=== PATIENT | female | born 1935 | race Caucasian/White ===

== ENCOUNTER 2020-06-01 16:40 | Observation (INO) | payer MEDICARE, BC ==
[2020-06-01] MEDS ORDERED: Sodium Chloride 0.9% 10 ML Syringe FLUSH PRN (16:58)
--- NOTE | 2020-06-01 17:20 | EDM.PDOC ---
ED HPI GENERAL MEDICAL PROBLEM - General Chief Complaint: Chest Pain Stated Complaint: PALPITATIONS Time Seen by Provider: 06/01/20 16:45 Source of Information: Reports: Patient History Limitations: Reports: No Limitations - History of Present Illness INITIAL COMMENTS - FREE TEXT/NARRATIVE: 85 YO WF PRESENTS TO ER WITH COMPLAINTS OF PALPITATIONS, CHEST PRESSURE AND NAUSEA. PT REPORTS SHE WASN'T FEELING WELL TODAY, AND FELT GENERALLY WEAK. PT TOOK SOME MOTRIN AND LAID DOWN AND WHEN SHE WOKE UP SHE WAS EXPERIENCING THIS PALPITATIONS. PT CAME TO ER AND WAS PLACED ON MONITOR AND WAS FOUND TO BE IN ATRIAL FIBRILLATION WITH RVR. PRIOR TO INITIAL 12 LEAD EKG PATIENT CONVERTED TO NSR. PT IS CURRENTLY ASYMPTOMATIC-NO CHEST PAIN OR PALPITATIONS. CURRENT HR-95; BP-127/89. PT REPORTS SHE DRINKS A LOT OF COFFEE- 2 POTS PER DAY/MULTIPLE CUPS BUT STATES SHE DIDN'T DRINK MUCH TODAY SINCE SHE WASN'T FEELING WELL. Onset: Today Duration: Minutes: Location: Reports: Chest Quality: Reports: Ache Severity: Moderate Improves with: Reports: Rest Worsens with: Reports: Movement Associated Symptoms: Reports: Chest Pain, Nausea/Vomiting - Related Data Allergies Allergy/AdvReac Type Severity Reaction Status Date / Time Penicillins Allergy Hives Verified 06/01/20 17:06 Home Meds: Home Meds Cholecalciferol (Vitamin D3) [Vitamin D3] 400 unit PO DAILY@1200 06/01/20 [History] Clopidogrel Bisulfate [Plavix] 75 mg PO BEDTIME 06/01/20 [History] Cyanocobalamin/Folic AC/Vit B6 [Folbee] 1 tab PO BEDTIME 06/01/20 [History] Insulin Glarg,Human.Rec.Analog [Lantus] 13 units SQ BEDTIME 06/01/20 [History] Losartan [Cozaar] 100 mg PO BEDTIME 06/01/20 [History] Lutein/Minerals/Vit A,C & E [Ocuvite] 1 tab PO BEDTIME 06/01/20 [History] Metoprolol Succinate [Toprol XL 100mg] 100 mg PO BEDTIME 06/01/20 [History] Pantoprazole Sodium [Protonix] 20 mg PO BEDTIME 06/01/20 [History] Sertraline [Zoloft] 100 mg PO BEDTIME 06/01/20 [History] amLODIPine Besylate [Amlodipine Besylate] 10 mg PO BEDTIME 06/01/20 [History] atorvaSTATin [Lipitor] 40 mg PO BEDTIME 06/01/20 [History] hydroCHLOROthiazide [Hydrochlorothiazide] 12.5 mg PO BEDTIME 06/01/20 [History] metFORMIN HCl [Glucophage] 1,000 mg PO DAILY 06/01/20 [History] ED ROS GENERAL - Review of Systems Review Of Systems: See Below Constitutional: Reports: No Symptoms HEENT: Reports: No Symptoms Respiratory: Reports: No Symptoms Cardiovascular: Reports: Chest Pain, Lightheadedness, Palpitations Endocrine: Reports: No Symptoms GI/Abdominal: Reports: Nausea : Reports: No Symptoms Musculoskeletal: Reports: No Symptoms Skin: Reports: No Symptoms Neurological: Reports: No Symptoms Psychiatric: Reports: No Symptoms Hematologic/Lymphatic: Reports: No Symptoms Immunologic: Reports: No Symptoms ED EXAM, GENERAL - Physical Exam Exam: See Below Exam Limited By: No Limitations General Appearance: Alert, WD/WN, No Apparent Distress Eye Exam: Bilateral Eye: PERRL Head: Atraumatic, Normocephalic Neck: Normal Inspection, Supple, Non-Tender, Full Range of Motion Respiratory/Chest: No Respiratory Distress, Lungs Clear, Normal Breath Sounds, No Accessory Muscle Use, Chest Non-Tender Cardiovascular: Normal Peripheral Pulses, Regular Rate, Rhythm, No Edema, No Gallop, No JVD, No Murmur, No Rub GI/Abdominal: Normal Bowel Sounds, Soft, Non-Tender, No Organomegaly, No Distention, No Abnormal Bruit, No Mass Back Exam: Normal Inspection, Full Range of Motion, NT Extremities: Normal Inspection, Normal Range of Motion, Non-Tender, Normal Capillary Refill, No Pedal Edema Neurological: Alert, Oriented, CN II-XII Intact, Normal Cognition, Normal Gait, Normal Reflexes, No Motor/Sensory Deficits Psychiatric: Normal Affect, Normal Mood Skin Exam: Warm, Dry, Intact, Normal Color, No Rash Lymphatic: No Adenopathy Course - Vital Signs Last Recorded V/S: Last Vital Signs Temp 97.8 F 06/01/20 16:49 Pulse 178 H 06/01/20 16:49 Resp 18 06/01/20 16:49 BP 121/73 06/01/20 16:49 Pulse Ox 95 06/01/20 16:49 - Orders/Labs/Meds Orders: Active Orders 24 hr Category Date Time Status EKG Documentation Completion [RC] ASDIRECTED Care 06/01/20 16:57 Ordered Peripheral IV Care [RC] . DIRECTED Care 06/01/20 16:58 Ordered Sodium Chloride 0.9% [Saline Flush] Med 06/01/20 16:58 Ordered 10 ml FLUSH Q8HR PRN Peripheral IV Insertion Adult [OM.PC] Routine Oth 06/01/20 16:58 Ordered EKG 12 Lead [EK] Stat Ther 06/01/20 16:55 Ordered Medication Orders Sodium Chloride (Sodium Chloride 0.9% 10 Ml Syringe) 10 ml FLUSH Q8HR PRN PRN Reason: keep vein open Labs: Laboratory Tests 06/01/20 06/01/20 Range/Units 17:52 17:52 WBC 7.30 (5.00-10.00) 10^3/uL RBC 4.46 (3.80-5.50) 10^6/uL Hgb 13.6 (12.0-16.0) g/dL Hct 38.5 (37.0-47.0) % MCV 86.3 (82.0-92.0) fL MCH 30.5 (27.0-31.0) pg MCHC 35.3 (32.0-36.0) g/dL RDW 13.1 (11.5-14.5) % Plt Count 164 (150-400) 10^3/uL MPV 10.5 H (7.4-10.4) fL Immature Gran % (Auto) 0.1 (0.0-5.0) % Neut % (Auto) 61.3 (50.0-70.0) % Lymph % (Auto) 23.7 (20.0-40.0) % [place] % (Auto) 13.3 H (2.0-8.0) % Eos % (Auto) 1.2 (1.0-3.0) % Baso % (Auto) 0.4 (0.0-1.0) % Neut # (Auto) 4.47 (2.50-7.00) 10^3/uL Lymph # (Auto) 1.73 (1.00-4.00) 10^3/uL [place] # (Auto) 0.97 H (0.10-0.80) 10^3/uL Eos # (Auto) 0.09 L (0.10-0.30) 10^3/uL Baso # (Auto) 0.03 (0.00-0.10) 10^3/uL Immature Gran # (Auto) 0.01 (0.00-0.50) 10^3/uL Sodium 141 (136-145) mmol/L Potassium 3.6 (3.5-5.1) mmol/L Chloride 103 (98-107) mmol/L Carbon Dioxide 23.5 (21.0-32.0) mmol/L Anion Gap 18.1 H (5-15) mmol/L BUN 14 (7-18) mg/dL Creatinine 0.95 (0.51-1.17) mg/dL Est Cr Clr Drug Dosing 38.07 mL/min Estimated GFR (MDRD) 56 mL/min Glucose 182 H (70-140) mg/dL Calcium 9.3 (8.7-10.3) mg/dL Total Bilirubin 0.5 (0.2-1.0) mg/dL AST 19 (15-37) U/L ALT 25 (14-63) U/L Alkaline Phosphatase 56 (46-116) U/L Creatine Kinase 60 (26-276) U/L CK-MB (CK-2) 0.73 (0.00-3.60) ng/mL Troponin I < 0.017 (0.000-0.056) ng/mL B-Natriuretic Peptide 153 H (0-100) pg/mL Total Protein 7.0 (6.4-8.2) g/dL Albumin 3.84 (3.40-5.00) g/dL Meds: Medications Generic Name Dose Route Start Last Admin Trade Name Freq PRN Reason Stop Dose Admin Sodium Chloride 10 ml 06/01/20 16:58 Sodium Chloride 0.9% 10 Ml Syringe FLUSH Q8HR PRN keep vein open Departure - Departure Time of Disposition: 17:51 Disposition: Refer to Observation Condition: Good Clinical Impression: Chest pain Qualifiers: Chest pain type: unspecified Qualified Code(s): R07.9 - Chest pain, unspecified Atrial fibrillation Qualifiers: Atrial fibrillation type: paroxysmal Qualified Code(s): I48.0 - Paroxysmal atrial fibrillation Forms: ED Department Discharge Sepsis Event Note (ED) - Evaluation Sepsis Screening Result: No Definite Risk - Focused Exam Vital Signs: Vital Signs Temp Pulse Resp BP Pulse Ox 06/01/20 16:49 97.8 F 178 H 18 121/73 95 - My Orders Last 24 Hours: My Active Orders 06/01/20 16:55 EKG 12 Lead [EK] Stat 06/01/20 16:57 EKG Documentation Completion [RC] ASDIRECTED 06/01/20 16:58 Peripheral IV Care [RC] . DIRECTED Sodium Chloride 0.9% [Saline Flush] 10 ml FLUSH Q8HR PRN Peripheral IV Insertion Adult [OM.PC] Routine - Assessment/Plan Last 24 Hours: My Active Orders 06/01/20 16:55 EKG 12 Lead [EK] Stat 06/01/20 16:57 EKG Documentation Completion [RC] ASDIRECTED 06/01/20 16:58 Peripheral IV Care [RC] . DIRECTED Sodium Chloride 0.9% [Saline Flush] 10 ml FLUSH Q8HR PRN Peripheral IV Insertion Adult [OM.PC] Routine Assessment:: 1. CHEST PAIN 2. NEW ONSET PAROXYSMAL ATRIAL FIBRILLATION- CONVERTED BACK TO NSR IN ER Plan: 1. ADMIT TO MEDICINE- OBSERVATION- DR JIM FELIX 2. TROP I Q6 3. SUPPORTIVE CARE 4. CARDIAC MONITORING
--- NOTE | 2020-06-01 17:28 | CR ---
[id number] RAD/RAD Chest PA or AP 1V EXAM: RAD Chest PA or AP 1V INDICATION: PAIN. COMPARISON: None. DISCUSSION: Cardiomediastinal silhouette is normal in size and contour. Lungs are clear. No pleural effusion or pneumothorax. IMPRESSION: Negative examination of the chest. Sam Wood MD 06/01/20 [id number] Thank you for allowing us to participate in the care of your patient.
[2020-06-01 17:31] LABS: ANION GAP 18.1 mmol/L (5-15); CHLORIDE,CL 103 mmol/L (98-107); SODIUM,NA 141 mmol/L (136-145)
[2020-06-01] MEDS ORDERED: 50% Dextrose in Water 50 ML Syringe IV PRN (19:39)
[2020-06-01] MEDS ORDERED: Glucagon,Human Recombinant 1 MG Vial IM PRN (19:39)
[2020-06-01] MEDS: Non-Formulary Medication 1 Each (Amlodipine Besylate [Amlodipine Besylate] 10 MG Tablet) PO SCH (20:56)
[2020-06-01] MEDS: Non-Formulary Medication 1 Each (Sertraline [Zoloft] 100 MG Tablet) PO SCH (20:57)
[2020-06-01] MEDS: Clopidogrel 75 MG Tab PO SCH (20:58)
[2020-06-01] MEDS: Hydrochlorothiazide 12.5 MG Cap PO SCH (20:58)
[2020-06-01] MEDS ORDERED: Metoprolol Succinate 50 MG Tab.ER PO SCH (21:00)
[2020-06-01] MEDS ORDERED: Pantoprazole 40 MG Tab.CR PO SCH (21:00)
[2020-06-01] MEDS ORDERED: Losartan 50 MG Tab PO SCH (21:00)
[2020-06-01] MEDS ORDERED: atorvaSTATin 40 MG Tab PO SCH (21:00)
[2020-06-01] MEDS: INSULIN GLARG HUMAN REC ANALOG 100 UNIT/ML SQ SCH (21:05)
[2020-06-01] MEDS: [UNRECOGNIZED DRUG - OTHER] SQ SCH (21:05)
[2020-06-01] MEDS: Insulin Aspart 100 Units/ML 3 ML Pen SUBCUT SCH (21:06)
[2020-06-01] MEDS: Enoxaparin 40 MG/0.4 ML Syringe SUBCUT SCH (21:07)
[2020-06-02] MEDS: Insulin Aspart 100 Units/ML 3 ML Pen SUBCUT SCH ×4 (07:39→21:30)
[2020-06-02] MEDS ORDERED: Atropine 0.1 MG/ML 10 ML Syringe IVPUSH PRN (16:14)
[2020-06-02] MEDS ORDERED: EPINEPHrine 1:10,000 1 MG/10 ML Syringe IVPUSH PRN (16:14)
[2020-06-02] MEDS ORDERED: Nitroglycerin 0.4 MG Tab.SL SL PRN (16:14)
[2020-06-02] MEDS ORDERED: Lidocaine 2% 100 MG/5 ML Syringe IVPUSH PRN (16:14)
--- NOTE | 2020-06-02 16:55 | PCM.HP.2 ---
H&P History of Present Illness - General Date of Service: 06/02/20 Admit Problem/Dx: Admission Diagnosis/Problem Admission Diagnosis/Problem Chest pain Source of Information: Patient, Old Records, Provider History Limitations: Reports: No Limitations - Related Data Allergies/Adverse Reactions: Allergies Allergy/AdvReac Type Severity Reaction Status Date / Time Penicillins Allergy Hives Verified 06/01/20 17:06 Home Medications: Home Meds Cholecalciferol (Vitamin D3) [Vitamin D3] 400 unit PO DAILY@1200 06/01/20 [History] Clopidogrel Bisulfate [Plavix] 75 mg PO BEDTIME 06/01/20 [History] Cyanocobalamin/Folic AC/Vit B6 [Folbee] 1 tab PO BEDTIME 06/01/20 [History] Insulin Glarg,Human.Rec.Analog [Lantus] 13 units SQ BEDTIME 06/01/20 [History] Losartan [Cozaar] 100 mg PO BEDTIME 06/01/20 [History] Lutein/Minerals/Vit A,C & E [Ocuvite] 1 tab PO BEDTIME 06/01/20 [History] Pantoprazole Sodium [Protonix] 20 mg PO BEDTIME 06/01/20 [History] Sertraline [Zoloft] 100 mg PO BEDTIME 06/01/20 [History] amLODIPine Besylate [Amlodipine Besylate] 10 mg PO BEDTIME 06/01/20 [History] atorvaSTATin [Lipitor] 40 mg PO BEDTIME 06/01/20 [History] hydroCHLOROthiazide [Hydrochlorothiazide] 12.5 mg PO BEDTIME 06/01/20 [History] metFORMIN HCl [Glucophage] 1,000 mg PO DAILY 06/01/20 [History] Metoprolol Succinate [Toprol XL 100mg] 50 mg PO BEDTIME #30 06/03/20 [Rx] Past Medical History HEENT History: Reports: Cataract, Other (See Below) Other HEENT History: denture sore mouth Cardiovascular History: Reports: High Cholesterol, Hypertension, Other (See [place]) Other Cardiovascular History: hypokalemia,carotid artery stenosis Gastrointestinal History: Reports: GERD Genitourinary History: Reports: UTI, Recurrent [employer] History: Reports: Musculoskeletal History: Reports: Back Pain, Chronic, Other (See Below) Other Musculoskeletal History: numbness/tingling to right hand, back pain radiating down left leg Neurological History: Reports: CVA, Other (See Below) Other Neuro History: thalmic infarct Endocrine/Metabolic History: Reports: Diabetes, Type II, Osteoporosis Hematologic History: Reports: None Immunologic History: Reports: None Oncologic (Cancer) History: Reports: None Dermatologic History: Reports: Other (See Below) Other Dermatologic History: rash or other nonspecific skin eruption - Infectious Disease History Infectious Disease History: Reports: Chicken Pox, Measles, Mumps - Past Surgical History Head Surgeries/Procedures: Reports: None HEENT Surgical History: Reports: Cataract Surgery Cardiovascular Surgical History: Reports: Carotid Endarterectomy GI Surgical History: Reports: Colonoscopy Female Surgical History: Reports: Hysterectomy Neurological Surgical History: Reports: None Musculoskeletal Surgical History: Reports: Other (See Below) Other Musculoskeletal Surgeries/Procedures:: Hammertoe repair Social & Family History - Family History Family Medical History: No Pertinent Family History - Tobacco Use Tobacco Use Status *Q: Never Tobacco User - Caffeine Use Caffeine Use: Reports: Coffee Other Caffeine Use: 2 pots per day of coffee - Recreational Drug Use Recreational Drug Use: No H&P Review of Systems - Review of Systems: Review Of Systems: See Below General: Reports: Weakness (Chronic weakness left lower extremity) HEENT: Reports: No Symptoms Pulmonary: Reports: No Symptoms Cardiovascular: Reports: Syncope (Patient states she has chronic passing out when she bends over or leans forward). Denies: Orthopnea, PND, Blood Pressure Problem Gastrointestinal: Reports: No Symptoms Genitourinary: Reports: No Symptoms Musculoskeletal: Reports: No Symptoms Skin: Reports: No Symptoms Psychiatric: Reports: No Symptoms Neurological: Reports: Pre-Existing Deficit (Left lower extremity deficit history of CVA no drop foot,) Exam - Exam Exam: See Below - Vital Signs Vital Signs: Last Vital Signs Temp 96.6 F L 06/02/20 15:00 Pulse 56 L 06/02/20 15:00 Resp 16 06/02/20 15:00 BP 132/55 L 06/02/20 15:00 Pulse Ox 93 L 06/02/20 15:00 Weight: 155 lb - Exam Quality Assessment: No: Supplemental Oxygen General: Alert, Oriented, 4 HEENT: Conjunctiva Clear Neck: Supple Lungs: Clear to Auscultation, Normal Respiratory Effort Cardiovascular: Regular Rate, Regular Rhythm, Normal S1, Normal S2 GI/Abdominal Exam: Normal Bowel Sounds, Soft (Female) Exam: Deferred Rectal (Female) Exam: Deferred Back Exam: No: CVA Tenderness (L), CVA Tenderness (R) Extremities: No Pedal Edema, Normal Capillary Refill Peripheral Pulses: 2+: Radial (L), 3+: Radial (R) Skin: Warm, Dry, Intact Neurological: Normal Speech, Normal Tone, Sensation Intact. No: Focal Deficit, Clonus Neuro Extensive - Mental Status: Alert, Oriented x3 Neuro Extensive - Motor, Sensory, Reflexes: CN II-XII Intact Psychiatric: Alert, Normal Affect, Normal Mood - Patient Data Lab Results Last 24 hrs: Laboratory Results - last 24 hr 06/01/20 06/01/20 06/01/20 Range/Units 17:51 17:52 17:52 WBC 7.30 (5.00-10.00) 10^3/uL RBC 4.46 (3.80-5.50) 10^6/uL Hgb 13.6 (12.0-16.0) g/dL Hct 38.5 (37.0-47.0) % MCV 86.3 (82.0-92.0) fL MCH 30.5 (27.0-31.0) pg MCHC 35.3 (32.0-36.0) g/dL RDW 13.1 (11.5-14.5) % Plt Count 164 (150-400) 10^3/uL MPV 10.5 H (7.4-10.4) fL Immature Gran % (Auto) 0.1 (0.0-5.0) % Neut % (Auto) 61.3 (50.0-70.0) % Lymph % (Auto) 23.7 (20.0-40.0) % Price % (Auto) 13.3 H (2.0-8.0) % Eos % (Auto) 1.2 (1.0-3.0) % Baso % (Auto) 0.4 (0.0-1.0) % Neut # (Auto) 4.47 (2.50-7.00) 10^3/uL Lymph # (Auto) 1.73 (1.00-4.00) 10^3/uL Price # (Auto) 0.97 H (0.10-0.80) 10^3/uL Eos # (Auto) 0.09 L (0.10-0.30) 10^3/uL Baso # (Auto) 0.03 (0.00-0.10) 10^3/uL Immature Gran # (Auto) 0.01 (0.00-0.50) 10^3/uL Sodium 141 (136-145) mmol/L Potassium 3.6 (3.5-5.1) mmol/L Chloride 103 (98-107) mmol/L Carbon Dioxide 23.5 (21.0-32.0) mmol/L Anion Gap 18.1 H (5-15) mmol/L BUN 14 (7-18) mg/dL Creatinine 0.95 (0.51-1.17) mg/dL Est Cr Clr Drug Dosing 38.07 mL/min Estimated GFR (MDRD) 56 mL/min Glucose 182 H (70-140) mg/dL POC Glucose (70-140) mg/dL Calcium 9.3 (8.7-10.3) mg/dL Magnesium (1.8-2.4) mg/dL Total Bilirubin 0.5 (0.2-1.0) mg/dL AST 19 (15-37) U/L ALT 25 (14-63) U/L Alkaline Phosphatase 56 (46-116) U/L Creatine Kinase 60 (26-276) U/L CK-MB (CK-2) 0.73 (0.00-3.60) ng/mL Troponin I < 0.017 (0.000-0.056) ng/mL B-Natriuretic Peptide 153 H (0-100) pg/mL Total Protein 7.0 (6.4-8.2) g/dL Albumin 3.84 (3.40-5.00) g/dL TSH, Ultra Sensitive (0.340-4.820) uIU/mL SARS CoV-2 RNA Rapid MALINI Negative (NEGATIVE) 06/01/20 06/01/20 06/01/20 Range/Units 20:54 23:08 23:08 WBC (5.00-10.00) 10^3/uL RBC (3.80-5.50) 10^6/uL Hgb (12.0-16.0) g/dL Hct (37.0-47.0) % MCV (82.0-92.0) fL MCH (27.0-31.0) pg MCHC (32.0-36.0) g/dL RDW (11.5-14.5) % Plt Count (150-400) 10^3/uL MPV (7.4-10.4) fL Immature Gran % (Auto) (0.0-5.0) % Neut % (Auto) (50.0-70.0) % Lymph % (Auto) (20.0-40.0) % Price % (Auto) (2.0-8.0) % Eos % (Auto) (1.0-3.0) % Baso % (Auto) (0.0-1.0) % Neut # (Auto) (2.50-7.00) 10^3/uL Lymph # (Auto) (1.00-4.00) 10^3/uL Price # (Auto) (0.10-0.80) 10^3/uL Eos # (Auto) (0.10-0.30) 10^3/uL Baso # (Auto) (0.00-0.10) 10^3/uL Immature Gran # (Auto) (0.00-0.50) 10^3/uL Sodium (136-145) mmol/L Potassium (3.5-5.1) mmol/L Chloride (98-107) mmol/L Carbon Dioxide (21.0-32.0) mmol/L Anion Gap (5-15) mmol/L BUN (7-18) mg/dL Creatinine (0.51-1.17) mg/dL Est Cr Clr Drug Dosing mL/min Estimated GFR (MDRD) mL/min Glucose (70-140) mg/dL POC Glucose 152 H (70-140) mg/dL Calcium (8.7-10.3) mg/dL Magnesium 1.8 (1.8-2.4) mg/dL Total Bilirubin (0.2-1.0) mg/dL AST (15-37) U/L ALT (14-63) U/L Alkaline Phosphatase (46-116) U/L Creatine Kinase (26-276) U/L CK-MB (CK-2) (0.00-3.60) ng/mL Troponin I 0.040 (0.000-0.056) ng/mL B-Natriuretic Peptide (0-100) pg/mL Total Protein (6.4-8.2) g/dL Albumin (3.40-5.00) g/dL TSH, Ultra Sensitive 3.297 (0.340-4.820) uIU/mL SARS CoV-2 RNA Rapid MALINI (NEGATIVE) 06/02/20 06/02/20 06/02/20 Range/Units 07:30 07:37 12:10 WBC (5.00-10.00) 10^3/uL RBC (3.80-5.50) 10^6/uL Hgb (12.0-16.0) g/dL Hct (37.0-47.0) % MCV (82.0-92.0) fL MCH (27.0-31.0) pg MCHC (32.0-36.0) g/dL RDW (11.5-14.5) % Plt Count (150-400) 10^3/uL MPV (7.4-10.4) fL Immature Gran % (Auto) (0.0-5.0) % Neut % (Auto) (50.0-70.0) % Lymph % (Auto) (20.0-40.0) % Price % (Auto) (2.0-8.0) % Eos % (Auto) (1.0-3.0) % Baso % (Auto) (0.0-1.0) % Neut # (Auto) (2.50-7.00) 10^3/uL Lymph # (Auto) (1.00-4.00) 10^3/uL Price # (Auto) (0.10-0.80) 10^3/uL Eos # (Auto) (0.10-0.30) 10^3/uL Baso # (Auto) (0.00-0.10) 10^3/uL Immature Gran # (Auto) (0.00-0.50) 10^3/uL Sodium (136-145) mmol/L Potassium (3.5-5.1) mmol/L Chloride (98-107) mmol/L Carbon Dioxide (21.0-32.0) mmol/L Anion Gap (5-15) mmol/L BUN (7-18) mg/dL Creatinine (0.51-1.17) mg/dL Est Cr Clr Drug Dosing mL/min Estimated GFR (MDRD) mL/min Glucose (70-140) mg/dL POC Glucose 136 121 (70-140) mg/dL Calcium (8.7-10.3) mg/dL Magnesium (1.8-2.4) mg/dL Total Bilirubin (0.2-1.0) mg/dL AST (15-37) U/L ALT (14-63) U/L Alkaline Phosphatase (46-116) U/L Creatine Kinase (26-276) U/L CK-MB (CK-2) (0.00-3.60) ng/mL Troponin I 0.030 (0.000-0.056) ng/mL B-Natriuretic Peptide (0-100) pg/mL Total Protein (6.4-8.2) g/dL Albumin (3.40-5.00) g/dL TSH, Ultra Sensitive (0.340-4.820) uIU/mL SARS CoV-2 RNA Rapid MALINI (NEGATIVE) Result Diagrams: 06/01/20 17:52 06/01/20 17:52 Sepsis Event Note - Evaluation Sepsis Screening Result: No Definite Risk - Focused Exam Vital Signs: Vital Signs Temp Pulse Pulse Resp BP BP Pulse Ox 06/02/20 15:00 96.6 F L 56 L 16 132/55 L 93 L 06/02/20 11:00 97.1 F 59 L 18 138/67 96 06/02/20 06:17 98.5 F 62 16 154/62 H 95 Problem List Initiated/Reviewed/Updated: Yes Orders Last 24hrs: Active Orders 24 hr Category Date Time Status Patient Status [ADT] Routine ADT 06/01/20 17:53 Active Blood Glucose Check, Bedside [RC] WITHMEALSANDBED Care 06/01/20 19:34 Active Cardiac Monitoring [RC] 03,07,11,15,19,23 Care 06/01/20 19:35 Active Intake and Output [RC] 0600,1400,2200 Care 06/01/20 19:35 Active Oxygen Therapy [RC] PRN Care 06/01/20 19:35 Active Up With Assistance [RC] ASDIRECTED Care 06/01/20 19:34 Active VTE/DVT Education [RC] PER UNIT ROUTINE Care 06/01/20 17:53 Active Vital Signs [RC] 03,07,11,15,19,23 Care 06/01/20 17:53 Active [place] [employer] Diet [DIET] Diet 06/02/20 Breakfast Active Atropine [Atropine 0.1 MG/ML] Med 06/02/20 16:14 Active See Dose Instructions IVPUSH ASDIRECTED PRN Clopidogrel [Plavix] Med 06/01/20 21:00 Active 75 mg PO BEDTIME Dextrose 50% in Water Med 06/01/20 19:39 Active 50 ml IV ASDIRECTED PRN EPINEPHrine [EPINEPHrine 1:10,000] Med 06/02/20 16:14 Active 1 mg IVPUSH ASDIRECTED PRN Enoxaparin [Lovenox] Med 06/01/20 21:00 Active 40 mg SUBCUT Q24H Glucagon,Human Recombinant [GlucaGen] Med 06/01/20 19:39 Active 1 mg IM ASDIRECTED PRN Insulin Aspart [NovoLOG] Med 06/01/20 22:00 Active See Protocol SUBCUT WITHMEALSANDBED Insulin Glarg,Human.Rec.Analog [Lantus] Med 06/01/20 21:00 Active 13 units SQ BEDTIME Lidocaine 2% [Xylocaine 2%] Med 06/02/20 16:14 Active See Dose Instructions IVPUSH ASDIRECTED PRN Nitroglycerin [Nitrostat] Med 06/02/20 16:14 Active 0.4 mg SL ASDIRECTED PRN Non-Formulary Medication [NF Drug] Med 06/02/20 21:00 Active 1 each PO BEDTIME Non-Formulary Medication [NF Drug] Med 06/02/20 21:00 Active 1 each PO BEDTIME Non-Formulary Medication [NF Drug] Med 06/02/20 21:00 Active 1 each PO BEDTIME Sertraline [Zoloft] Med 06/01/20 21:00 Active 100 mg PO BEDTIME amLODIPine Besylate [Amlodipine Besylate] Med 06/01/20 21:00 Active 10 mg PO BEDTIME atorvaSTATin [Lipitor] Med 06/02/20 21:00 Active 40 mg PO BEDTIME hydroCHLOROthiazide Med 06/01/20 21:00 Active 12.5 mg PO BEDTIME Peripheral IV Insertion Adult [OM.PC] Routine Oth 06/01/20 16:58 Ordered Resuscitation Status Routine Resus Stat 06/01/20 17:53 Ordered EKG 12 Lead [EK] Stat Ther 06/01/20 16:55 Stop Req Medication Orders Atorvastatin Calcium (Atorvastatin 40 Mg Tab - Ptom) 40 mg PO BEDTIME RASHEED Atropine Sulfate (Atropine 0.1 Mg/Ml 10 Ml Syringe) 0 mg IVPUSH ASDIRECTED PRN PRN Reason: Heart. Clopidogrel Bisulfate (Clopidogrel 75 Mg Tab) 75 mg PO BEDTIME [facility] Last Admin: 06/01/20 20:58 Dose: 75 mg Documented by: PETER Dextrose/Water (50% Dextrose In Water 50 Ml Syringe) 50 ml IV ASDIRECTED PRN PRN Reason: Hypoglycemia Enoxaparin Sodium (Enoxaparin 40 Mg/0.4 Ml Syringe) 40 mg SUBCUT Q24H [facility] Last Admin: 06/01/20 21:07 Dose: 40 mg Documented by: PETER Epinephrine HCl (Epinephrine 1:10,000 1 Mg/10 Ml Syringe) 1 mg IVPUSH ASDIRECTED PRN PRN Reason: Heart. Glucagon (Glucagon,Human Recombinant 1 Mg Vial) 1 mg IM ASDIRECTED PRN PRN Reason: Hypoglycemia Hydrochlorothiazide (Hydrochlorothiazide 12.5 Mg Cap) 12.5 mg PO BEDTIME [facility] Last Admin: 06/01/20 20:58 Dose: 12.5 mg Documented by: PETER Insulin Aspart (Insulin Aspart 100 Units/Ml 3 Ml Pen) 0 unit SUBCUT WITHMEALSANDBED [facility]; Protocol Last Admin: 06/02/20 07:39 Dose: Not Given Documented by: Admin: 06/01/20 21:06 Dose: 1 unit Documented by: PETER Lidocaine HCl (Lidocaine 2% 100 Mg/5 Ml Syringe) 0 mg IVPUSH ASDIRECTED PRN PRN Reason: Heart. Nitroglycerin (Nitroglycerin 0.4 Mg Tab.Sl) 0.4 mg SL ASDIRECTED PRN PRN Reason: Heart. Non-Formulary Medication (Amlodipine Besylate [Amlodipine Besylate]) 10 mg PO BEDTIME [facility] Last Admin: 06/01/20 20:56 Dose: 10 mg Documented by: PETER Non-Formulary Medication (Insulin Glarg,Human.Rec.Analog [Lantus]) 13 units SQ BEDTIME [facility] Last Admin: 06/01/20 21:05 Dose: 13 units Documented by: PETER Non-Formulary Medication (Sertraline [Zoloft]) 100 mg PO BEDTIME [facility] Last Admin: 06/01/20 20:57 Dose: 100 mg Documented by: PETER Metoprolol Succinate (Er 100mg - Ptom) 1 each PO BEDTIME [facility] Losartan 100mg (Tablet - Ptom) 1 each PO BEDTIME [facility] Pantoprazole Dr 20mg (Tablet - Ptom) 1 each PO BEDTIME [facility] Assessment/Plan Comment:: History of present illness Sherin is a pleasant 85-year-old female that was admitted yesterday and OBS status due to up possible atrial fibrillation episode. Patient drove herself to the ED complaining of some chest palpitations pressure along with accompanying nausea. Admits to not feeling herself the day of admission with generalized weakness. On arrival to the ED he was noted for her to be in atrial fibrillation with RVR on basic leads however prior to ECG converted to normal sinus rhythm. She had no chest pain or palpitations on arrival to the ED. Admits to heavy coffee drinker lately ED course, EKG; Initial cardio biomarkers normal Vital signs within normal limits No chest pain or shortness of breath Chest x-ray, within normal limits Hospital course 06/02/2020; no overnight calls nor concerns, patient feels good today on rounds. Nurses do not report any signs and symptoms of atrial fibrillations, patient de nies palpitations, PND Primary hospital problems Rule out paroxysmal atrial fibrillation, secured entrance monitor, will hold off on full anticoagulation other than LMWH aggressive ambulation activity 4 times today. Continue with metoprolol Chronic/stable problems Hypertension, HCTZ, 12.5 mg daily, amlodipine 10 mg, losartan 100 mg Hyperlipidemia, statin therapy Type 2 diabetes, insulin Stenosis, carotid arteries, clopidogrel Thalmic infarct history, clopidogrel Osteoporosis Disposition/overall plan --Continue with telemetry at this time, notify on-call provider with any abnormalities --Anticipate discharge in a.m. - Mortality Measure Prognosis:: Good
[2020-06-02] MEDS ORDERED: LOSARTAN 100 MG PO SCH (21:00)
[2020-06-02] MEDS ORDERED: PANTOPRAZOLE 20 MG PO SCH (21:00)
[2020-06-02] MEDS ORDERED: METOPROLOL SUCCINATE 100 MG PO SCH (21:00)
[2020-06-02] MEDS ORDERED: ATORVASTATIN 40 MG PO SCH (21:00)
[2020-06-02] MEDS: Hydrochlorothiazide 12.5 MG Cap PO SCH (21:25)
[2020-06-02] MEDS: Clopidogrel 75 MG Tab PO SCH (21:25)
[2020-06-02] MEDS: Non-Formulary Medication 1 Each (Amlodipine Besylate [Amlodipine Besylate] 10 MG Tablet) PO SCH (21:25)
[2020-06-02] MEDS: Non-Formulary Medication 1 Each (Sertraline [Zoloft] 100 MG Tablet) PO SCH (21:27)
[2020-06-02] MEDS: INSULIN GLARG HUMAN REC ANALOG 100 UNIT/ML SQ SCH (21:29)
[2020-06-02] MEDS: [UNRECOGNIZED DRUG - OTHER] SQ SCH (21:29)
[2020-06-02] MEDS: Enoxaparin 40 MG/0.4 ML Syringe SUBCUT SCH (21:32)
[2020-06-03] MEDS: Insulin Aspart 100 Units/ML 3 ML Pen SUBCUT SCH (07:45)
--- NOTE | 2020-06-03 09:44 | PCM.DCSUM1 ---
Discharge Summary - Hospital Course Diagnosis: Stroke: No - Discharge Data Discharge Date: 06/03/20 Discharge Disposition: Home, W Home Health Agency 06 Condition: Good - Referral to Home Health Date of Face to Face Encounter: 06/03/20 Reason for Homebound Status: This is a order in a [id number] encounter from home health services to include home health nursing to set up an monitor patient's medication regime. Patient's family states they're not so certain that she is been compliant regarding proper medication set up, distribution and administration. She has had recent changes in her medication including a 50% reduction in metoprolol tartrate 50 mg by mouth at bedtime. Please develop an in-home therapy program to address medication compliance and set up an proper monitoring. Patient does have some confusion regarding her medication with possible recent atrial fibrillation with RVR undetected while in the hospital however highly suspect she has paroxysmal atrial fibrillation Primary Care Physician: Tonie De La Cruz PA-C Skilled Need: Home medications set up, and administration, compliance education - Patient Summary/Data Complications: No complications other than a symptom medic sinus bradycardia due to metoprolol - Patient Instructions Diet: Heart Healthy Diet Activity: No Strenuous Activities Driving: Do Not Drive Showering/Bathing: May Shower Other/Special Instructions: Report any chest flutterness, dizziness or chest pains. We decreased your BP meds Metoprolol to 50mg at bedtime. Drink plenty of water. - Discharge Plan *PRESCRIPTION DRUG MONITORING PROGRAM REVIEWED*: Not Applicable *COPY OF PRESCRIPTION DRUG MONITORING REPORT IN PATIENT CELESTE: Not Applicable Home Medications: Home Meds Cholecalciferol (Vitamin D3) [Vitamin D3] 400 unit PO DAILY@1200 06/01/20 [History] Clopidogrel Bisulfate [Plavix] 75 mg PO BEDTIME 06/01/20 [History] Cyanocobalamin/Folic AC/Vit B6 [Folbee] 1 tab PO BEDTIME 06/01/20 [History] Insulin Glarg,Human.Rec.Analog [Lantus] 13 units SQ BEDTIME 06/01/20 [History] Losartan [Cozaar] 100 mg PO BEDTIME 06/01/20 [History] Lutein/Minerals/Vit A,C & E [Ocuvite] 1 tab PO BEDTIME 06/01/20 [History] Pantoprazole Sodium [Protonix] 20 mg PO BEDTIME 06/01/20 [History] Sertraline [Zoloft] 100 mg PO BEDTIME 06/01/20 [History] amLODIPine Besylate [Amlodipine Besylate] 10 mg PO BEDTIME 06/01/20 [History] atorvaSTATin [Lipitor] 40 mg PO BEDTIME 06/01/20 [History] hydroCHLOROthiazide [Hydrochlorothiazide] 12.5 mg PO BEDTIME 06/01/20 [History] metFORMIN HCl [Glucophage] 1,000 mg PO DAILY 06/01/20 [History] Metoprolol Succinate [Toprol XL 100mg] 50 mg PO BEDTIME #30 06/03/20 [Rx] Referrals: Thee Dong, SILVER STEWARD [Nurse Practitioner] - - Discharge Summary/Plan Comment DC Time >30 min.: Yes Discharge Summary/Plan Comment: Final diagnosis Rule out paroxysmal atrial fibrillation, this has not been fully ruled out Chronic/stable problems Hypertension, HCTZ, 12.5 mg daily, amlodipine 10 mg, losartan 100 mg Hyperlipidemia, statin therapy Type 2 diabetes, insulin Stenosis, carotid arteries, clopidogrel Thalmic infarct history, clopidogrel Osteoporosis History summary Sherin is a pleasant 85-year-old female that was admitted yesterday and OBS status due to up possible atrial fibrillation episode. Patient drove herself to the ED complaining of some chest palpitations pressure along with accompanying nausea. Admits to not feeling herself the day of admission with generalized weakness. On arrival to the ED he was noted for her to be in atrial fibrillation with RVR on basic leads however prior to ECG converted to normal sinus rhythm. She had no chest pain or palpitations on arrival to the ED. Admits to heavy coffee drinker lately ED course, EKG; Initial cardio biomarkers normal Vital signs within normal limits No chest pain or shortness of breath Chest x-ray, within normal limits Hospital course 06/02/2020; no overnight calls nor concerns, patient feels good today on rounds. Nurses do not report any signs and symptoms of atrial fibrillations, patient denies palpitations, PND 06/03/2020; no concerns for atrial fibrillation however patient did have sinus bradycardia asymptomatic in the 50s. Metoprolol succinate was decreased by 50% to 50 mg by mouth at bedtime. Patient no chest pains no shortness of breath she tolerated her diet and she had no signs and symptoms of adverse reactions other than slight little bradycardic due to metoprolol succinate. No signs of atrial fibrillation on 48 hour monitoring. Denies any dyspnea, chest pain or chest palpitations and leg on the floor quite aggressively yesterday throughout the day with no telemetry A. fib A flutter concerns. Family denotes patient mixing her medications up and not being compliant and being confused. Home health referral will be placed Disposition/overall plan --Patient was deemed ready for discharge, she'll follow up with myself next week, she desires to pick another PCP due to her PCP skilled nursing --Home health referral for medication compliance set up management administration. Medication changes/adjustments upon discharge --Metoprolol succinate, reduced by 50% to 50 mg by mouth daily at bedtime --continue on all other home medications This is a order in a [id number] encounter from home health services to include home health nursing to set up an monitor patient's medication regime. Patient's family states they're not so certain that she is been compliant regarding proper medication set up, distribution and administration. She has had recent changes in her medication including a 50% reduction in metoprolol tartrate 50 mg by mouth at bedtime. Please develop an in-home therapy program to address medication compliance and set up an proper monitoring. Patient does have some confusion regarding her medication with possible recent atrial fibrillation with RVR undetected while in the hospital however highly suspect she has paroxysmal atrial fibrillation - General Info Functional Status: Reports: Pain Controlled - Review of Systems General: Reports: No Symptoms HEENT: Reports: No Symptoms Pulmonary: Reports: No Symptoms Cardiovascular: Reports: No Symptoms Gastrointestinal: Reports: No Symptoms Genitourinary: Reports: No Symptoms Musculoskeletal: Reports: No Symptoms Skin: Reports: No Symptoms Neurological: Reports: No Symptoms Psychiatric: Reports: No Symptoms - Patient Data Vitals - Most Recent: Last Vital Signs Temp 96.9 F 06/03/20 06:55 Pulse 60 06/03/20 06:55 Resp 16 06/03/20 06:55 BP 137/62 06/03/20 06:55 Pulse Ox 93 L 06/03/20 06:55 Weight - Most Recent: 155 lb I&O - Last 24 hours: Intake & Output 06/02/20 06/03/20 06/03/20 22:59 06:59 14:59 Intake Total 300 100 Output Total 600 200 Balance -300 -100 Lab Results - Last 24 hrs: Laboratory Results - last 24 hr 06/02/20 06/02/20 06/02/20 Range/Units 12:10 17:49 21:06 POC Glucose 121 107 152 H (70-140) mg/dL Med Orders - Current: Current Medications Atorvastatin Calcium (Atorvastatin 40 Mg Tab - Ptom) 40 mg PO BEDTIME [facility] Last Admin: 06/02/20 21:26 Dose: 40 mg Documented by: Atropine Sulfate (Atropine 0.1 Mg/Ml 10 Ml Syringe) 0 mg IVPUSH ASDIRECTED PRN PRN Reason: Heart. Clopidogrel Bisulfate (Clopidogrel 75 Mg Tab) 75 mg PO BEDTIME [facility] Last Admin: 06/02/20 21:25 Dose: 75 mg Documented by: Dextrose/Water (50% Dextrose In Water 50 Ml Syringe) 50 ml IV ASDIRECTED PRN PRN Reason: Hypoglycemia Enoxaparin Sodium (Enoxaparin 40 Mg/0.4 Ml Syringe) 40 mg SUBCUT Q24H [facility] Last Admin: 06/02/20 21:32 Dose: 40 mg Documented by: Epinephrine HCl (Epinephrine 1:10,000 1 Mg/10 Ml Syringe) 1 mg IVPUSH ASDIRECTED PRN PRN Reason: Heart. Glucagon (Glucagon,Human Recombinant 1 Mg Vial) 1 mg IM ASDIRECTED PRN PRN Reason: Hypoglycemia Hydrochlorothiazide (Hydrochlorothiazide 12.5 Mg Cap) 12.5 mg PO BEDTIME [facility] Last Admin: 06/02/20 21:25 Dose: 12.5 mg Documented by: Insulin Aspart (Insulin Aspart 100 Units/Ml 3 Ml Pen) 0 unit SUBCUT WITHMEALSANDBED [facility]; Protocol Last Admin: 06/03/20 07:45 Dose: 1 unit Documented by: Lidocaine HCl (Lidocaine 2% 100 Mg/5 Ml Syringe) 0 mg IVPUSH ASDIRECTED PRN PRN Reason: Heart. Nitroglycerin (Nitroglycerin 0.4 Mg Tab.Sl) 0.4 mg SL ASDIRECTED PRN PRN Reason: Heart. Non-Formulary Medication (Amlodipine Besylate [Amlodipine Besylate]) 10 mg PO BEDTIME [facility] Last Admin: 06/02/20 21:25 Dose: 10 mg Documented by: Non-Formulary Medication (Insulin Glarg,Human.Rec.Analog [Lantus]) 13 units SQ BEDTIME [facility] Last Admin: 06/02/20 21:29 Dose: 13 units Documented by: Non-Formulary Medication (Sertraline [Zoloft]) 100 mg PO BEDTIME [facility] Last Admin: 06/02/20 21:27 Dose: 100 mg Documented by: Metoprolol Succinate (Er 100mg - Ptom) 1 each PO BEDTIME [facility] Last Admin: 06/02/20 21:23 Dose: 0.5 each Documented by: Losartan 100mg (Tablet - Ptom) 1 each PO BEDTIME [facility] Last Admin: 06/02/20 21:26 Dose: 1 each Documented by: Pantoprazole Dr 20mg (Tablet - Ptom) 1 each PO BEDTIME [facility] Last Admin: 06/02/20 21:27 Dose: 1 each Documented by: Discontinued Medications Atorvastatin Calcium (Atorvastatin 40 Mg Tab) 40 mg PO BEDTIME [facility] Last Admin: 06/01/20 21:02 Dose: 40 mg Documented by: Losartan Potassium (Losartan 50 Mg Tab) 100 mg PO BEDTIME [facility] Last Admin: 06/01/20 21:02 Dose: 100 mg Documented by: Metoprolol Succinate (Metoprolol Succinate 50 Mg Tab.Er) 100 mg PO BEDTIME [facility] Last Admin: 06/01/20 20:58 Dose: 100 mg Documented by: Pantoprazole Sodium (Pantoprazole 40 Mg Tab.Cr) 40 mg PO BEDTIME [facility] Last Admin: 06/01/20 20:58 Dose: 40 mg Documented by: Sodium Chloride (Sodium Chloride 0.9% 10 Ml Syringe) 10 ml FLUSH Q8HR PRN PRN Reason: keep vein open - Exam General: Reports: Alert Neck: Reports: Supple Lungs: Reports: Clear to Auscultation, Normal Respiratory Effort Cardiovascular: Reports: Regular Rate, Regular Rhythm GI/Abdominal Exam: Soft Skin: Reports: Warm, Dry, Intact Neurological: Reports: No New Focal Deficit Psy/Mental Status: Reports: Alert, Normal Affect, Normal Mood
== END 2020-06-03 10:20 | disposition home health service (06) ==
LOC: KA.ED 16:40 → KA.MS 17:53 → UNDOADMOB 17:53
PROVIDERS: ADMIT Physician Assistant Medical; ATTEND Family Medicine
DX: R07.9 Chest pain, unspecified (principal); I48.0 Paroxysmal atrial fibrillation; I10 Essential (primary) hypertension; R53.1 Weakness; E78.5 Hyperlipidemia, unspecified; E11.9 Type 2 diabetes mellitus without complications; M81.0 Age-related osteoporosis without current pathological fracture; I65.23 Occlusion and stenosis of bilateral carotid arteries; E78.00 Pure hypercholesterolemia, unspecified; Z20.822 Contact with and (suspected) exposure to COVID-19; Z88.0 Allergy status to penicillin; Z79.4 Long term (current) use of insulin; Z79.899 Other long term (current) drug therapy
CPT/HCPCS: 36415; 71045; 80053; 82550; 82553; 82947; 83735; 83880; 84443; 84484; 85025; 93005; 96372; 99220; 99285-25; A9270-GY; G0378; J1650; J1815-GY; U0002

== ENCOUNTER 2020-08-11 08:57 | Emergency (ER) | payer MEDICARE, BC ==
--- NOTE | 2020-08-11 10:06 | EDM.PDOC ---
ED HPI GENERAL MEDICAL PROBLEM - General Chief Complaint: General Stated Complaint: L LEG PX Time Seen by Provider: 08/11/20 09:51 Source of Information: Reports: Patient, Family (son) History Limitations: Reports: No Limitations - History of Present Illness INITIAL COMMENTS - FREE TEXT/NARRATIVE: Patient presents with left foot pain that started when she awoke this morning. She fell yesterday afternoon at around 3:00 PM and hit the back of her head on the bathroom cabinet. She was stooped down cleaning the bathtub and when she went to stand up and pivot she fell back against the cabinet. She had a small bump on the back of the head but it has gone down. She denies LOC, vision change, vomiting, headache, neck pain, balance problem. The foot didn't hurt yesterday after the fall. Her son and other family/friends were with her most of the afternoon and evening yesterday and can confirm she was acting and ambulating normally. She had a stroke in 2014 that affected the left side but doesn't normally have this pain in her foot. Left Leg Pain Score (Numeric/FACES): 7 - Related Data Allergies Allergy/AdvReac Type Severity Reaction Status Date / Time Penicillins Allergy Hives Verified 08/11/20 09:17 Home Meds: Home Meds Cholecalciferol (Vitamin D3) [Vitamin D3] 400 unit PO DAILY@1200 06/01/20 [History] Clopidogrel Bisulfate [Plavix] 75 mg PO BEDTIME 06/01/20 [History] Cyanocobalamin/Folic AC/Vit B6 [Folbee] 1 tab PO BEDTIME 06/01/20 [History] Insulin Glarg,Human.Rec.Analog [Lantus] 13 units SQ BEDTIME 06/01/20 [History] Losartan [Cozaar] 100 mg PO BEDTIME 06/01/20 [History] Lutein/Minerals/Vit A,C & E [Ocuvite] 1 tab PO BEDTIME 06/01/20 [History] Pantoprazole Sodium [Protonix] 20 mg PO BEDTIME 06/01/20 [History] Sertraline [Zoloft] 100 mg PO BEDTIME 06/01/20 [History] amLODIPine Besylate [Amlodipine Besylate] 10 mg PO BEDTIME 06/01/20 [History] atorvaSTATin [Lipitor] 40 mg PO BEDTIME 06/01/20 [History] hydroCHLOROthiazide [Hydrochlorothiazide] 12.5 mg PO BEDTIME 06/01/20 [History] metFORMIN HCl [Glucophage] 1,000 mg PO DAILY 06/01/20 [History] Metoprolol Succinate [Toprol XL 100mg] 50 mg PO BEDTIME #30 06/03/20 [Rx] Past Medical History HEENT History: Reports: Cataract, Other (See Below) Other HEENT History: denture sore mouth Cardiovascular History: Reports: High Cholesterol, Hypertension, Other (See Below) Other Cardiovascular History: hypokalemia,carotid artery stenosis Gastrointestinal History: Reports: GERD Genitourinary History: Reports: UTI, Recurrent HYDRAULIC JACK MECHANIC History: Reports: Musculoskeletal History: Reports: Back Pain, Chronic, Other (See Below) Other Musculoskeletal History: numbness/tingling to right hand, back pain radiating down left leg Neurological History: Reports: CVA, Other (See Below) Other Neuro History: thalmic infarct Endocrine/Metabolic History: Reports: Diabetes, Type II, Osteoporosis Hematologic History: Reports: None Immunologic History: Reports: None Oncologic (Cancer) History: Reports: None Dermatologic History: Reports: Other (See Below) Other Dermatologic History: rash or other nonspecific skin eruption - Infectious Disease History Infectious Disease History: Reports: Chicken Pox, Measles, Mumps - Past Surgical History Head Surgeries/Procedures: Reports: None HEENT Surgical History: Reports: Cataract Surgery Cardiovascular Surgical History: Reports: Carotid Endarterectomy GI Surgical History: Reports: Colonoscopy Female Surgical History: Reports: Hysterectomy Neurological Surgical History: Reports: None Musculoskeletal Surgical History: Reports: Other (See Below) Other Musculoskeletal Surgeries/Procedures:: Hammertoe repair Social & Family History - Family History Family Medical History: No Pertinent Family History - Tobacco Use Tobacco Use Status *Q: Never Tobacco User - Caffeine Use Caffeine Use: Reports: Coffee, Tea Other Caffeine Use: 2 pots per day of coffee - Recreational Drug Use Recreational Drug Use: No ED ROS GENERAL - Review of Systems Review Of Systems: See Below Constitutional: Denies: Fever, Chills, Malaise, Weakness HEENT: Denies: Ear Pain, Throat Pain, Vision Change Respiratory: Denies: Shortness of Breath, Cough Cardiovascular: Denies: Chest Pain, Lightheadedness, Syncope GI/Abdominal: Denies: Abdominal Pain, Nausea, Vomiting : Denies: Dysuria, Flank Pain Musculoskeletal: Reports: Foot Pain. Denies: Neck Pain, Shoulder Pain, Arm Pain, Back Pain, Hand Pain, Leg Pain Skin: Denies: Cyanosis, Jaundice, Mottled, Pallor, Diaphoresis Neurological: Denies: Confusion, Dizziness, Headache, Seizure, Syncope, Trouble Speaking Psychiatric: Denies: Agitation, Anxiety, Confusion ED EXAM, GENERAL - Physical Exam Exam: See Below Exam Limited By: No Limitations General Appearance: Alert, WD/WN, No Apparent Distress Eye Exam: Bilateral Eye: EOMI, Normal Inspection (full visual franco), PERRL Ears: Normal External Exam, Hearing Grossly Normal Nose: Normal Inspection, Normal Mucosa, No Blood Throat/Mouth: Normal Inspection, Normal Lips, Normal Voice, No Airway Compromise, Other (symmetric smile) Head: Normocephalic, Other (small occipital contusion but no swelling, deformity, depression or crepitus) Neck: Normal Inspection, Supple, Non-Tender, Full Range of Motion. No: Tender Lateral, Tender Midline Respiratory/Chest: No Respiratory Distress, Lungs Clear, Normal Breath Sounds Cardiovascular: Regular Rate, Rhythm, No Murmur GI/Abdominal: Soft, Non-Tender Back Exam: Normal Inspection, Full Range of Motion. No: CVA Tenderness (L), CVA Tenderness (R), Paraspinal Tenderness, Vertebral Tenderness Extremities: Normal Inspection (of UE and hips and knees bilat), Normal Range of Motion (of UE and hips and knees bilat), No Pedal Edema, Other (left foot is tender throughout even to very light touch, from toes to ankle; nothing localized and no ecchymosis, abrasions, deformity or other obvious injury) Neurological: Alert, Oriented, CN II-XII Intact, Normal Cognition, No Motor/Sensory Deficits Psychiatric: Normal Affect, Normal Mood Skin Exam: Warm, Dry, Intact, Normal Color, No Rash Course - Vital Signs Last Recorded V/S: Last Vital Signs Temp 97.0 F 08/11/20 09:11 Pulse 62 08/11/20 09:45 Resp 18 08/11/20 09:45 BP 146/64 H 08/11/20 09:45 Pulse Ox 96 08/11/20 09:45 - Orders/Labs/Meds Orders: Active Orders 24 hr Category Date Time Status Foot 2V Lt [CR] Stat Exams 08/11/20 09:58 Ordered Head wo Cont [CT] Stat Exams 08/11/20 09:21 Ordered Hip Min 2V or 3V Lt [CR] Stat Exams 08/11/20 09:21 Stop Req Departure - Departure Time of Disposition: 10:57 Disposition: Home, Self-Care 01 Condition: Good Clinical Impression: Foot pain, left Contusion of occipital region of scalp Qualifiers: Encounter type: initial encounter Qualified Code(s): S00.03XA - Contusion of scalp, initial encounter Fall Qualifiers: Encounter type: initial encounter Qualified Code(s): W19.XXXA - Unspecified fall, initial encounter - Discharge Information Referrals: Tonie De La Cruz PA-C [Primary Care Provider] - Additional Instructions: Drink 8 cups of water daily. Use the walker or wheelchair if needed for preventing foot pain. If any balance, vision or pupil changes, as we discussed, recheck right away with your PCP or ER. Follow up with your PCP in a week if the foot is not improving. Sepsis Event Note (ED) - Evaluation Sepsis Screening Result: No Definite Risk - Focused Exam Vital Signs: Vital Signs Temp Pulse Resp BP Pulse Ox 08/11/20 09:45 62 18 146/64 H 96 08/11/20 09:15 62 16 152/72 H 95 08/11/20 09:11 97.0 F 65 16 148/74 H 95 - My Orders Last 24 Hours: My Active Orders 08/11/20 09:21 Head wo Cont [CT] Stat Hip Min 2V or 3V Lt [CR] Stat 08/11/20 09:58 Foot 2V Lt [CR] Stat - Assessment/Plan Last 24 Hours: My Active Orders 08/11/20 09:21 Head wo Cont [CT] Stat Hip Min 2V or 3V Lt [CR] Stat 08/11/20 09:58 Foot 2V Lt [CR] Stat
--- NOTE | 2020-08-11 10:18 | CT ---
[id number] CT/CT Head WO IV EXAM: CT Head WO IV CLINICAL DATA: TRAUMA COMPARISON: CORRELATION IS MADE WITH JULY 08, 2014 FINDINGS: There is no mass or mass effect. There is no hemorrhage or hydrocephalus. There are no extra-axial fluid collections. There are no sites of abnormal attenuation. IMPRESSION: NO PLAIN CT EVIDENCE OF ACUTE INTRACRANIAL PROCESS. [place] Dempsey MD 08/11/20 1016 Thank you for allowing us to participate in the care of your patient.
[2020-08-11 10:31] VITALS: PULSE 60
[2020-08-11 10:47] VITALS: BP 152/68
--- NOTE | 2020-08-11 10:49 | CR ---
[id number] RAD/RAD Ankle Left 2V EXAM: RAD Ankle Left 2V INDICATION: Pain. COMPARISON: March 20, 2011. DISCUSSION: Irregularity of the lateral malleolus suggests prior avulsion injury and is unchanged. Joint spaces are maintained. No acute fracture or dislocation. Arterial calcifications IMPRESSION: 1. No acute findings. Markell Montana MD 08/11/20 1048 Thank you for allowing us to participate in the care of your patient.
--- NOTE | 2020-08-11 10:49 | CR ---
[id number] RAD/RAD Foot Left 3V Min Exam: RAD Foot Left 3V Min Indication:FALL, PAIN. Comparison: No prior imaging for comparison. Discussion/Impression: Bones in normal alignment. No fracture, AVN, or erosive changes. Joint spaces are well-preserved. Bone mineralization is normal. Sam Wood MD 08/11/20 1048 Thank you for allowing us to participate in the care of your patient.
== END 2020-08-11 11:10 | disposition home or self-care (01) ==
LOC: KA.ED 08:57
DX: S00.03XA Contusion of scalp, initial encounter (principal); M79.672 Pain in left foot; E78.00 Pure hypercholesterolemia, unspecified; I10 Essential (primary) hypertension; E11.9 Type 2 diabetes mellitus without complications; Z79.4 Long term (current) use of insulin; Z79.02 Long term (current) use of antithrombotics/antiplatelets; Z79.899 Other long term (current) drug therapy; Z88.0 Allergy status to penicillin; W18.09XA Striking against other object with subsequent fall, initial encounter; Y92.002 Bathroom of unspecified non-institutional (private) residence as the place of occurrence of the external cause
CPT/HCPCS: 70450; 73600-LT; 73630-LT; 99284-25